=== PATIENT | male | born 1950 | race Caucasian/White ===

== ENCOUNTER 2021-02-15 08:29 | Inpatient (IN) | payer MEDICARE, OTHER ==
[~2021-02-15] VITALS: Ht 177.8 cm; Wt 90.7 kg
[~2021-02-15 08:29] MED LIST: DEXAMETHASONE2 MG PO
[2021-02-15 09:09] LABS: HEMOGLOBIN 15.2 gm/dl (14.0-17.5); RED BLOOD COUNT 5.14 M/UL (4.20-5.50); WHITE BLOOD COUNT 14.6 K/UL (4.5-11.0)
[2021-02-15 09:34] LABS: BUN/CREATININE RATIO 18 (0-10)
[2021-02-15] MEDS ORDERED: VENTOLIN HFA 66.7 GM INH (13:13)
[2021-02-15] MEDS ORDERED: PROMETHAZINE-D473 M1 PO (13:28)
[2021-02-15] MEDS ORDERED: PROTONIX 40 MG40 M1 PO (13:29)
[2021-02-15] MEDS ORDERED: LISINOPRIL10 MG PO (13:46)
[2021-02-15] MEDS ORDERED: ATORVASTATIN CA10 MG PO (13:47)
--- NOTE | 2021-02-16 02:57 | NUR ---
2229 TELE NOTIFIED ME THAT PATIENT'S OXYGEN SATURATION WAS IN THE MID 80S. I ASSESSED THE PATIENT AND TITRATED HIS OXYGEN UP TO 5L. I NOTIFIED DR JACKMAN THAT THE PATIENT WAS NEEDING HIGH FLOW NASAL CANNULA AND NOTIFIED RESPIRATORY. 2244 RESPIRATORY PUT THE PATIENT ON 8L HIGH FLOW NASAL CANNULA AND HIS OXYGEN SATURATION REACHED 90. 0145 I NOTICED ON THE MONITOR THAT PATIENT'S OXYGEN SATURATION HAD DROPPED DOWN TO THE MID 80S. I WENT TO PATIENT'S ROOM AND TITRATED HIS OXYGEN UP TO 15L. HIS OXYGEN LEVEL STILL WOULD NOT GET ABOVE 84. I NOTIFIED DR JACKMAN AND SUGGESTED AIRVO FOR THIS PATIENT. DR JACKMAN ORDERED BIPAP AND I LET HIM KNOW THAT SINCE THE PATIENT HAD NEVER BEEN ON BIPAP BEFORE, HE WOULD HAVE TO BE A PCU TRANSFER. DR JACKMAN STATED THIS WAS OKAY. I NOTIFIED RESPIRATORY. 224 TRANSFERRED PATIENT TO PCU. PATIENT IS STABLE AT THIS TIME.
--- NOTE | 2021-02-16 03:51 | NUR ---
0300 NOTIFIED GRANDDAUGHTER OF PATIENT'S TRANSFER TO PCU.
[2021-02-16 04:24] LABS: HEMOGLOBIN 14.8 gm/dl (14.0-17.5)
[2021-02-16 04:40] LABS: BUN/CREATININE RATIO 22 (0-10)
--- NOTE | 2021-02-16 14:00 | NUR ---
NO CHANGE FROM PREVIOUS ASSESSMENT
[2021-02-17 02:34] LABS: HEMOGLOBIN 14.4 gm/dl (14.0-17.5); RED BLOOD COUNT 4.86 M/UL (4.20-5.50); WHITE BLOOD COUNT 14.1 K/UL (4.5-11.0)
[2021-02-17 02:53] LABS: BUN/CREATININE RATIO 29 (0-10)
[2021-02-18 03:09] LABS: HEMOGLOBIN 14.5 gm/dl (14.0-17.5); RED BLOOD COUNT 4.92 M/UL (4.20-5.50); WHITE BLOOD COUNT 11.8 K/UL (4.5-11.0)
[2021-02-18 03:36] LABS: BUN/CREATININE RATIO 32 (0-10)
[2021-02-19 06:11] LABS: HEMOGLOBIN 15.2 gm/dl (14.0-17.5); RED BLOOD COUNT 5.17 M/UL (4.20-5.50); WHITE BLOOD COUNT 13.8 K/UL (4.5-11.0)
[2021-02-19 06:45] LABS: BUN/CREATININE RATIO 31 (0-10)
--- NOTE | 2021-02-19 19:05 | NUR ---
CALLED WITH CONCERS THAT PATIENT HAD MAXED OUT AIRVO AND BIPAP MACHINE AND STILL AT THE TIME WAS ONLY SATING IN THE UPPER 80S AND LOW 90S. PATIENT WAS USING BIPAP AND STILL ONLY SATING IN THE LOW 90S. DR. GAN WAS CONCERNED THAT THE PATIENT DIDN'T HAVE ANY FURTHE RESPIRATORY OPTIONS ON THE 4TH FLOOR AND OPTED TO HAVE THE PATINT MOVED TO ICU.
[2021-02-20 05:10] LABS: RED BLOOD COUNT 5.02 M/UL (4.20-5.50); WHITE BLOOD COUNT 13.1 K/UL (4.5-11.0)
[2021-02-20 05:33] LABS: BUN/CREATININE RATIO 31 (0-10)
[2021-02-22 05:38] LABS: HEMOGLOBIN 15.9 gm/dl (14.0-17.5); RED BLOOD COUNT 5.43 M/UL (4.20-5.50); WHITE BLOOD COUNT 15.5 K/UL (4.5-11.0)
[2021-02-22 06:16] LABS: BUN/CREATININE RATIO 42 (0-10)
[2021-02-23 04:09] LABS: HEMOGLOBIN 16.7 gm/dl (14.0-17.5); RED BLOOD COUNT 5.61 M/UL (4.20-5.50); WHITE BLOOD COUNT 18.7 K/UL (4.5-11.0)
[2021-02-23 04:58] LABS: BUN/CREATININE RATIO 37 (0-10)
[2021-02-24 05:19] LABS: HEMOGLOBIN 14.7 gm/dl (14.0-17.5); RED BLOOD COUNT 4.88 M/UL (4.20-5.50); WHITE BLOOD COUNT 23.1 K/UL (4.5-11.0)
[2021-02-24 05:46] LABS: BUN/CREATININE RATIO 37 (0-10)
[2021-02-25 03:18] LABS: RED BLOOD COUNT 5.33 M/UL (4.20-5.50)
[2021-02-25 03:33] LABS: BUN/CREATININE RATIO 35 (0-10)
[2021-02-25 04:33] LABS: WHITE BLOOD COUNT 31.2 K/UL (4.5-11.0)
[2021-02-26 03:33] LABS: HEMOGLOBIN 14.7 gm/dl (14.0-17.5); RED BLOOD COUNT 5.14 M/UL (4.20-5.50)
[2021-02-26 03:41] LABS: WHITE BLOOD COUNT 30.4 K/UL (4.5-11.0)
[2021-02-26 03:56] LABS: BUN/CREATININE RATIO 40 (0-10)
[2021-02-27 04:07] LABS: BUN/CREATININE RATIO 45 (0-10)
[2021-02-27 05:40] LABS: HEMOGLOBIN 13.8 gm/dl (14.0-17.5); RED BLOOD COUNT 4.83 M/UL (4.20-5.50); WHITE BLOOD COUNT 14.5 K/UL (4.5-11.0)
[2021-02-28 05:30] LABS: HEMOGLOBIN 13.4 gm/dl (14.0-17.5); RED BLOOD COUNT 4.54 M/UL (4.20-5.50)
[2021-02-28 05:33] LABS: WHITE BLOOD COUNT 20.3 K/UL (4.5-11.0)
[2021-02-28 05:50] LABS: BUN/CREATININE RATIO 40 (0-10)
[2021-03-01 05:48] LABS: BUN/CREATININE RATIO 46 (0-10)
[2021-03-02 04:30] LABS: HEMOGLOBIN 12.3 gm/dl (14.0-17.5); RED BLOOD COUNT 4.18 M/UL (4.20-5.50)
[2021-03-02 04:41] LABS: WHITE BLOOD COUNT 14.3 K/UL (4.5-11.0)
[2021-03-02 04:53] LABS: BUN/CREATININE RATIO 49 (0-10)
[2021-03-03 05:21] LABS: HEMOGLOBIN 12.7 gm/dl (14.0-17.5); RED BLOOD COUNT 4.35 M/UL (4.20-5.50); WHITE BLOOD COUNT 10.9 K/UL (4.5-11.0)
[2021-03-03 05:43] LABS: BUN/CREATININE RATIO 66 (0-10)
[2021-03-04 05:10] LABS: BUN/CREATININE RATIO 53 (0-10)
[2021-03-05 05:27] LABS: RED BLOOD COUNT 4.72 M/UL (4.20-5.50); WHITE BLOOD COUNT 13.8 K/UL (4.5-11.0)
[2021-03-05 05:47] LABS: BUN/CREATININE RATIO 62 (0-10)
[2021-03-06 05:21] LABS: HEMOGLOBIN 14.8 gm/dl (14.0-17.5); RED BLOOD COUNT 4.97 M/UL (4.20-5.50)
[2021-03-06 05:27] LABS: WHITE BLOOD COUNT 19.2 K/UL (4.5-11.0)
[2021-03-06 05:33] LABS: BUN/CREATININE RATIO 75 (0-10)
[2021-03-07 05:17] LABS: HEMOGLOBIN 13.8 gm/dl (14.0-17.5); RED BLOOD COUNT 4.65 M/UL (4.20-5.50); WHITE BLOOD COUNT 19.6 K/UL (4.5-11.0)
[2021-03-07 05:39] LABS: BUN/CREATININE RATIO 62 (0-10)
[2021-03-08 08:03] LABS: HEMOGLOBIN 13.3 gm/dl (14.0-17.5); RED BLOOD COUNT 4.49 M/UL (4.20-5.50)
[2021-03-08 08:04] LABS: WHITE BLOOD COUNT 14.3 K/UL (4.5-11.0)
[2021-03-08 08:18] LABS: BUN/CREATININE RATIO 42 (0-10)
[2021-03-08 15:15] LABS: HEPARIN INDUCED PLATELET AB 0.357 OD (0.000-0.400)
[2021-03-09 05:23] LABS: HEMOGLOBIN 11.6 gm/dl (14.0-17.5); RED BLOOD COUNT 3.93 M/UL (4.20-5.50); WHITE BLOOD COUNT 12.2 K/UL (4.5-11.0)
[2021-03-09 05:43] LABS: BUN/CREATININE RATIO 29 (0-10)
[2021-03-10 05:18] LABS: HEMOGLOBIN 12.2 gm/dl (14.0-17.5); RED BLOOD COUNT 4.15 M/UL (4.20-5.50); WHITE BLOOD COUNT 10.9 K/UL (4.5-11.0)
[2021-03-10 05:39] LABS: BUN/CREATININE RATIO 41 (0-10)
[2021-03-11 04:19] LABS: HEMOGLOBIN 12.2 gm/dl (14.0-17.5); RED BLOOD COUNT 4.15 M/UL (4.20-5.50); WHITE BLOOD COUNT 12.6 K/UL (4.5-11.0)
[2021-03-11 04:39] LABS: BUN/CREATININE RATIO 50 (0-10)
[2021-03-12 04:50] LABS: HEMOGLOBIN 11.2 gm/dl (14.0-17.5); RED BLOOD COUNT 3.8 M/UL (4.20-5.50)
[2021-03-12 05:49] LABS: BUN/CREATININE RATIO 46 (0-10)
--- NOTE | 2021-03-12 14:43 | NUR ---
NOTIFIED MD OF ACUTE CHANGES, LEFT PUPIL APPEARS SMALLER THAN THE RIGHT. LEFT IS 1.0 THE RIGHT IS 2.0. ROUTINE HEAD CT WITHOUT CONTRAST WAS ORDER PER HOSPITALIST.
[2021-03-13 05:39] LABS: HEMOGLOBIN 10.6 gm/dl (14.0-17.5); RED BLOOD COUNT 3.6 M/UL (4.20-5.50); WHITE BLOOD COUNT 6.9 K/UL (4.5-11.0)
[2021-03-13 06:17] LABS: BUN/CREATININE RATIO 32 (0-10)
[2021-03-14 03:57] LABS: ACINETOBACTER BAUMANNII Not Detected (Negative); ENTEROCOCCUS Not Detected (Negative); ESCHERICHIA COLI Not Detected (Negative); HAEMOPHILUS INFLUENZAE Not Detected (Negative); KLEBSIELLA OXYTOCA Not Detected (Negative); KLEBSIELLA PNEUMONIAE Not Detected (Negative); KPC-CARBAPENEM-RESISTANCE GENE Not Detected (Negative); PROTEUS Not Detected (Negative); SERRATIA MARCESANS Not Detected (Negative); STAPHYLOCOCCUS Not Detected (Negative); STAPHYLOCOCCUS AUREUS Not Detected (Negative); STREP AGALACTIAE (GROUP B) Not Detected (Negative); STREP PYOGENES (GROUP A) Not Detected (Negative); STREPTOCOCCUS Not Detected (Negative); mecA (METHICILLIN RESIST GENE Not Detected (Negative); vanA/B (VANCOMYCIN RESIST GENE Not Detected (Negative)
[2021-03-14 03:58] LABS: CANDIDA KRUSEI Not Detected (Negative); CANDIDA TROPICALIS Not Detected (Negative); PSEUDOMONAS AERUGINOSA Not Detected (Negative)
[2021-03-14 03:59] LABS: CANDIDA ALBICANS DETECTED (Negative)
[2021-03-14 05:31] LABS: HEMOGLOBIN 10.8 gm/dl (14.0-17.5); RED BLOOD COUNT 3.64 M/UL (4.20-5.50); WHITE BLOOD COUNT 6.8 K/UL (4.5-11.0)
[2021-03-14 05:56] LABS: BUN/CREATININE RATIO 37 (0-10)
[2021-03-14] MEDS ORDERED: LOPRESSOR 25 MG25 MG PEG (09:54)
[2021-03-14] MEDS ORDERED: STIMULANT LAXA1 EACH PO (09:54)
[2021-03-14] MEDS ORDERED: LANTUS INS100 UTS/M1 SC (09:54)
[2021-03-14] MEDS ORDERED: BISACODYL10 MG PR (09:54)
[2021-03-14] MEDS ORDERED: BUDESONIDE0.5 MG/2 M INH (09:54)
[2021-03-14] MEDS ORDERED: IPRAT-ALBUT 0.5-3 ML INH (09:54)
[2021-03-14] MEDS ORDERED: ELIQUIS 2.5 MG2.5 MG PEG (09:54)
[2021-03-14] MEDS ORDERED: FOLIC ACID 1 MG1 MG PEG (09:54)
[2021-03-14] MEDS ORDERED: HUMALOG 10100 UNITS/ SC (09:54)
[2021-03-14] MEDS ORDERED: VITAMIN B-1100 M1 GT (09:54)
[2021-03-14] MEDS ORDERED: NYSTOP60 GM TOP (09:54)
[2021-03-14] MEDS ORDERED: ZINC SULFATE50 MG GT (09:54)
[2021-03-14] MEDS ORDERED: FLUCONAZOL IV (09:57)
[2021-03-14] MEDS ORDERED: ROCEPHIN 1 GM AD1 GM IV (09:57)
== END 2021-03-14 16:14 | DRG 4 ==
LOC: ER1 08:29 → CDU 10:31 → PROG CARE 10:31 → CCU 10:31 → 2 EAST 10:31 → M/S 10:31 → PROG CARE 02-16 02:27 → MED SURG 4 02-17 03:15 → 2 EAST 02-19 19:37 → CCU 03-02 17:25
PROVIDERS: Internal Medicine; Internal Medicine Infectious Disease; Internal Medicine Pulmonary Disease; ADMIT Internal Medicine
PROC: 8E0ZXY6 Isolation (ICD-10-PCS; principal; 2021-02-15)
PROC: XW033E5 Introduction of Remdesivir Anti-infective into Peripheral Vein, Percutaneous Approach, New Technology Group 5 (ICD-10-PCS; 2021-02-15)
PROC: XW13325 Transfusion of Convalescent Plasma (Nonautologous) into Peripheral Vein, Percutaneous Approach, New Technology Group 5 (ICD-10-PCS; 2021-02-20)
PROC: XW033H5 Introduction of Tocilizumab into Peripheral Vein, Percutaneous Approach, New Technology Group 5 (ICD-10-PCS; 2021-02-21)
PROC: 5A1955Z Respiratory Ventilation, Greater than 96 Consecutive Hours (ICD-10-PCS; 2021-02-23)
PROC: 0BH17EZ Insertion of Endotracheal Airway into Trachea, Via Natural or Artificial Opening (ICD-10-PCS; 2021-02-23)
PROC: 05HM33Z Insertion of Infusion Device into Right Internal Jugular Vein, Percutaneous Approach (ICD-10-PCS; 2021-02-23)
PROC: B543ZZA Ultrasonography of Right Jugular Veins, Guidance (ICD-10-PCS; 2021-02-23)
PROC: 0B113F4 Bypass Trachea to Cutaneous with Tracheostomy Device, Percutaneous Approach (ICD-10-PCS; 2021-03-08)
PROC: 0DH63UZ Insertion of Feeding Device into Stomach, Percutaneous Approach (ICD-10-PCS; 2021-03-08)
DX: A41.89 Other specified sepsis (principal); U07.1 COVID-19; J12.81 Pneumonia due to SARS-associated coronavirus; R65.21 Severe sepsis with septic shock; G93.41 Metabolic encephalopathy; R53.2 Functional quadriplegia; J80 Acute respiratory distress syndrome; J15.8 Pneumonia due to other specified bacteria; G72.81 Critical illness myopathy; E87.1 Hypo-osmolality and hyponatremia; D61.818 Other pancytopenia; E46 Unspecified protein-calorie malnutrition; B49 Unspecified mycosis; N17.9 Acute kidney failure, unspecified; E87.70 Fluid overload, unspecified; I10 Essential (primary) hypertension; K27.9 Peptic ulcer, site unspecified, unspecified as acute or chronic, without hemorrhage or perforation; Z68.28 Body mass index [BMI] 28.0-28.9, adult; E88.09 Other disorders of plasma-protein metabolism, not elsewhere classified; K76.0 Fatty (change of) liver, not elsewhere classified; E83.39 Other disorders of phosphorus metabolism; D69.6 Thrombocytopenia, unspecified; E87.8 Other disorders of electrolyte and fluid balance, not elsewhere classified; K21.9 Gastro-esophageal reflux disease without esophagitis; J44.9 Chronic obstructive pulmonary disease, unspecified; R53.81 Other malaise; R74.01 Elevation of levels of liver transaminase levels; E83.51 Hypocalcemia; E11.65 Type 2 diabetes mellitus with hyperglycemia; E87.5 Hyperkalemia; E78.5 Hyperlipidemia, unspecified; H40.9 Unspecified glaucoma; R79.89 Other specified abnormal findings of blood chemistry; K59.00 Constipation, unspecified; R13.10 Dysphagia, unspecified; Z90.49 Acquired absence of other specified parts of digestive tract; Z85.828 Personal history of other malignant neoplasm of skin; Z83.6 Family history of other diseases of the respiratory system; Z79.4 Long term (current) use of insulin
CPT/HCPCS: ECHO; 0240U; 31500; 36415; 36600; 70450; 71045; 71275; 76705; 80048; 80053; 80202; 81001; 82330; 82550; 82553; 82728; 82803; 82962; 83036; 83540; 83550; 83605; 83615; 83735; 83874; 83880; 84100; 84132; 84439; 84443; 84484; 85007; 85025; 85027; 85379; 85384; 85610; 86140; 86900; 86901; 86927; 87040; 87070; 87077; 87081; 87150; 87186; 87205; 87880; 93005; 93306; 93970; 94003; 94640; 94660; 94664; 94760; 96374; 96375; 99285; A6212; C1769; C9113; J0295; J0330; J0610; J0690; J0692; J0696; J1100; J1120; J1205; J1450; J1650; J1885; J1940; J2020; J2060; J2185; J2248; J2250; J2270; J2543; J2704; J3370; J7030; J7040; J7070; J7120; Q0177

== ENCOUNTER → 2021-07-31 | Outpatient (CLI) | payer MEDICARE, OTHER ==
[~2021-07-31] MED LIST changes: +ATORVASTATIN CA10 MG PO; +BISACODYL10 MG PR; +BUDESONIDE0.5 MG/2 M INH; +ELIQUIS 2.5 MG2.5 MG PEG; +FLUCONAZOL IV; +FOLIC ACID 1 MG1 MG PEG; +HUMALOG 10100 UNITS/ SC; +IPRAT-ALBUT 0.5-3 ML INH; +LANTUS INS100 UTS/M1 SC; +LISINOPRIL10 MG PO; +LOPRESSOR 25 MG25 MG PEG; +NYSTOP60 GM TOP; +PROMETHAZINE-D473 M1 PO; +PROTONIX 40 MG40 M1 PO; +ROCEPHIN 1 GM AD1 GM IV; +STIMULANT LAXA1 EACH PO; +VENTOLIN HFA 66.7 GM INH; +VITAMIN B-1100 M1 GT; +ZINC SULFATE50 MG GT
== END ==
LOC: KOH-I 13:30
DX: J96.11 Chronic respiratory failure with hypoxia (principal); G72.81 Critical illness myopathy; J43.9 Emphysema, unspecified; I25.10 Atherosclerotic heart disease of native coronary artery without angina pectoris; Z86.16 Personal history of COVID-19; Z87.09 Personal history of other diseases of the respiratory system; Z98.890 Other specified postprocedural states
CPT/HCPCS: 71250

== ENCOUNTER 2021-08-22 10:56 | Inpatient (IN) | payer MEDICARE, OTHER ==
[~2021-08-22] VITALS: Ht 180.3 cm; Wt 64.9 kg
[2021-08-22 11:23] LABS: HEMOGLOBIN 13.1 gm/dl (14.0-17.5); RED BLOOD COUNT 4.57 M/UL (4.20-5.50); WHITE BLOOD COUNT 18.8 K/UL (4.5-11.0)
[2021-08-22 11:43] LABS: BUN/CREATININE RATIO 30 (0-10)
[2021-08-22] MEDS ORDERED: BUDESONIDE0.25 MG/2 INH (14:42)
[2021-08-22] MEDS ORDERED: IPRAT-ALBUT 0.5-3 ML INH (14:45)
[2021-08-22] MEDS ORDERED: MYCOSTATIN100000 UTS PO (14:45)
[2021-08-22] MEDS ORDERED: ZOLOFT25 MG PEG (14:45)
[2021-08-22] MEDS ORDERED: LEVEMIR FL100 UNIT/1 SQ (14:46)
[2021-08-22] MEDS ORDERED: PEPCID20 MG PEG (14:46)
[2021-08-22] MEDS ORDERED: METOPROLOL TART25 MG PEG (14:46)
[2021-08-22] MEDS ORDERED: ZOFRAN ODT 4 MG4 MG PEG (14:47)
[2021-08-22] MEDS ORDERED: PROBIOTIC1 EAC1 PEG (14:47)
[2021-08-22] MEDS ORDERED: MAGNESIUM400 M2 PO (14:48)
[2021-08-22] MEDS ORDERED: JEVITY 1 CAL1500 ML PEG (14:48)
[2021-08-23 07:27] LABS: HEMOGLOBIN 11.8 gm/dl (14.0-17.5); RED BLOOD COUNT 4.3 M/UL (4.20-5.50); WHITE BLOOD COUNT 14.6 K/UL (4.5-11.0)
[2021-08-23 07:53] LABS: BUN/CREATININE RATIO 35 (0-10)
[2021-08-24 06:14] LABS: BUN/CREATININE RATIO 35 (0-10)
[2021-08-25 06:11] LABS: BUN/CREATININE RATIO 35 (0-10)
[2021-08-26 08:01] LABS: HEMOGLOBIN 11.3 gm/dl (14.0-17.5); RED BLOOD COUNT 4.09 M/UL (4.20-5.50)
[2021-08-26 08:09] LABS: BUN/CREATININE RATIO 26 (0-10)
[2021-08-27 07:34] LABS: HEMOGLOBIN 11.8 gm/dl (14.0-17.5); RED BLOOD COUNT 4.23 M/UL (4.20-5.50); WHITE BLOOD COUNT 7.4 K/UL (4.5-11.0)
[2021-08-27 08:16] LABS: BUN/CREATININE RATIO 11 (0-10)
[2021-08-27] MEDS ORDERED: IPRAT-ALBUT 0.5-3 ML INH (09:23)
[2021-08-27] MEDS ORDERED: HUMALOG 10100 UNITS/ SC (09:23)
[2021-08-27] MEDS ORDERED: AUGMENTIN 875-1 EACH PO (09:34)
== END 2021-08-27 13:45 | DRG 177 ==
LOC: ER1 10:56 → MED SURG 4 13:36 → CDU 13:36 → MED SURG 4 20:45
PROVIDERS: Internal Medicine; Physician Assistant; ADMIT Internal Medicine
DX: J69.0 Pneumonitis due to inhalation of food and vomit (principal); J96.21 Acute and chronic respiratory failure with hypoxia; Z20.822 Contact with and (suspected) exposure to COVID-19; J96.22 Acute and chronic respiratory failure with hypercapnia; R65.10 Systemic inflammatory response syndrome (SIRS) of non-infectious origin without acute organ dysfunction; E87.1 Hypo-osmolality and hyponatremia; E87.2 Acidosis; B37.0 Candidal stomatitis; R13.10 Dysphagia, unspecified; E11.9 Type 2 diabetes mellitus without complications; R74.01 Elevation of levels of liver transaminase levels; I10 Essential (primary) hypertension; I35.0 Nonrheumatic aortic (valve) stenosis; C44.91 Basal cell carcinoma of skin, unspecified; Z90.49 Acquired absence of other specified parts of digestive tract; Z79.4 Long term (current) use of insulin; Z93.0 Tracheostomy status; Z82.49 Family history of ischemic heart disease and other diseases of the circulatory system; Z82.5 Family history of asthma and other chronic lower respiratory diseases; Z86.16 Personal history of COVID-19
CPT/HCPCS: 0240U; 36415; 36600; 71045; 71046; 74230; 80048; 80053; 80202; 82550; 82553; 82803; 82962; 83874; 83880; 84484; 85025; 85027; 92526; 92610; 92611-GN; 93005; 94640; 94664; 94760; 96374; 96375; 97116-GP-CQ; 97162; 97166; 97530-GP-CQ; 99285; J0692; J1650; J1956; J2185; J3370; J7030; J7070